=== PATIENT | male | born 1960 | race Caucasian/White ===

== ENCOUNTER 2016-05-18 14:30 | Outpatient (RCR) | payer BC | END 2016-07-26 | disposition home or self-care (01) | LOC: DT 14:30 | PROVIDERS: ATTEND Nurse Practitioner Family | DX: E11.9 Type 2 diabetes mellitus without complications (principal) | CPT/HCPCS: 97802; 97803 ==

== ENCOUNTER → 2016-08-25 | Outpatient (CLI) | payer BC ==
[~2016-08-25] MED LIST: AML2.5T PO; ASPI-860 PO; CHOL10002 PO; CLON0.5T3 PO; CLOP75TA3 PO; DILT180C PO; DILT240C87 PO; EZET10TA5 PO; FAMO20TA45 PO; FURO40TA4 PO; GLYB5TAB6 PO; LISI5TAB14 PO; NFMET1000 PO; NIAC10002 PO; NITR1PAT11 TD; NTR.4SL SL; NTR.6TD TD; OMG1KC PO; ONDA4TAB11 PO; OXYC1TAB87 PO; PANT20TA24 PO; PANT40TA3 PO; PITA2TAB PO; SCR1T1 PO; TAMS0.4C2 PO; TRM50T PO; UBID50CA21 PO
== END ==
LOC: LAB 08:31
PROVIDERS: ATTEND Nurse Practitioner Family
DX: E11.9 Type 2 diabetes mellitus without complications (principal)
CPT/HCPCS: 36415; 83036

== ENCOUNTER 2016-10-18 04:33 | Emergency (ER) | payer BC ==
[~2016-10-18] VITALS: Ht 172.7 cm; Wt 95.5 kg
--- OUTSIDE RECORDS SUMMARY | 2016-10-18 04:37 | XMS REPORT | Continuity of Care Document ---
Author Author [facility] Organization [facility] Address Unknown Phone Unavailable Support Name Relationship Address Phone CLAUS FONSECA APRN Caregiver [address] [place] [address] DELILAH YADAV Next Of Kin [address] [place] [address] Insurance Providers Payer Name Policy Number Subscriber Name Relationship [facility] [id number] Terence Guzman 19 Self / Same As Patient Advance Directives Directive Response Recorded Date/Time Advanced Directives Yes 04/21/15 6:35am Type Living Will 04/21/15 6:35am Type Durable Power of Fisher Clam 04/21/15 6:35am Problems Active Problems Medical Problem Onset Date Status Blood in stool Unknown Acute Chest pain ~06/30/2014 Acute Dyspnea ~06/30/2014 Acute Elevated d-dimer ~07/01/2014 Acute Esophagitis Unknown Acute Hematemesis Unknown Acute Repair of umbilical hernia Unknown Resolved Medications Current Home Medications Medication Dose Units Route Directions Days/Qty Instructions Start Date Nitroglycerin (Nitrostat) 0.4 Mg 0.4 Mg SUBLINGUAL As Needed Pitavastatin Calcium 2 Mg 2 Mg ORAL Daily 09/02/13 Ezetimibe 10 Mg 10 Mg ORAL Daily 09/02/13 Nitroglycerin 1 Each 1 Each TRANSDERMAL Daily 09/02/13 Lisinopril (Zestril) 5 Mg 5 Mg ORAL Daily 09/02/13 Clopidogrel Bisulfate 75 Mg 75 Mg ORAL Daily 09/02/13 Aspirin 81 Mg 81 Mg ORAL Daily 09/02/13 Glyburide 5 Mg 5 Mg ORAL Twice A Day 09/02/13 Metformin Hcl 1,000 Mg 1,000 Mg ORAL Twice A Day 09/02/13 Pantoprazole Sod 40 Mg 40 Mg ORAL Twice A Day 07/01/14 Clonazepam 0.5 Mg 0.5 Mg ORAL Bedtime 04/20/15 Ubidecarenone 50 Mg 50 Mg ORAL Daily 04/20/15 [place] 3 Polyunsat Fatty Acids 1,000 Mg 2,000 Mg ORAL Twice A Day Furosemide 40 Mg 40 Mg ORAL Daily 04/21/15 Famotidine 20 Mg 20 Mg ORAL Twice A Day 04/21/15 Past Home Medications Medication Directions Ordered Status Ondansetron 4 Mg Tab.rapdis, 4 Mg Oral As Needed 09/02/13 Discontinued Tramadol Hcl (Ultram) 50 Mg Tablet, 50 Mg Oral As Needed 09/02/13 Discontinued Oxycodone/Acetaminophen 1 Each Tablet, 1-2 Tab Oral As Needed 09/02/13 Discontinued Cholecalciferol 1,000 Unit Tab, 2000 Unit Oral Daily 09/02/13 Discontinued [place] 3 Polyunsat Fatty Acids 1,000 Mg Cap, 1000 Mg Oral Three Times A Day Discontinued Niacin 1,000 Mg Tablet.er, 1000 Mg Oral Twice A Day 09/02/13 Discontinued Diltiazem Hcl 240 Mg Capsule.er, 240 Mg Oral Daily 09/02/13 Discontinued Amlodipine Besylate (Norvasc) 2.5 Mg Tablet, 2.5 Mg Oral Daily 09/02/13 Discontinued Pantoprazole Sodium (Protonix) 20 Mg Tablet.dr, 20 Mg Oral Twice A Day Discontinued Diltiazem Hcl 180 Mg Cap.er.24h, 180 Mg Oral Bedtime 07/01/14 Discontinued Tamsulosin Hcl 0.4 Mg Cap.er.24h, 0.4 Mg Oral Bedtime 07/01/14 Discontinued Nitroglycerin 0.6 Mg/Patch Patch, 0.6 Mg Transdermal Daily 07/14/14 Discontinued Sucralfate (Carafate) 1 Gm Tablet, 1 Gm Oral 30 Min Qac & Qhs 08/20/14 Discontinued Social History No social history. Hospital Discharge Instructions No hospital discharge instructions. Plan of Care Prescriptions See Medication Section Functional Status No functional status results. Allergies, Adverse Reactions, Alerts Allergen Type Severity Reaction Status Last Updated Penicillin Allergy Unknown Active 09/02/13 Sulfa (Sulfonamide Antibiotics) Allergy Unknown Active 04/20/15 Pravastatin Allergy Unknown Active 04/20/15 Simvastatin Allergy Unknown Active 04/20/15 Meperidine Allergy Unknown Active 04/20/15 atorvastatin Allergy Unknown Active 04/20/15 rosuvastatin Allergy Unknown Active 04/20/15 Immunizations No immunization records. Vital Signs No known vital signs results. Results No known relevant diagnostic tests, laboratory data and/or discharge summary. Procedures No known history of procedures. Encounters Encounter Location Arrival/Admit Date Discharge/Depart Date Attending Provider Discharged [facility] 05/18/16 2:30pm 07/26/16 11:59pm CLAUS FONSECA APRN
[2016-10-18 04:40] VITALS: BP 155/80
--- NOTE | 2016-10-18 05:48 | NUR ---
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 Pt is nonsymptomatic with this
== END 2016-10-18 06:13 | disposition home or self-care (01) ==
LOC: ED 04:35
DX: M79.651 Pain in right thigh (principal)
CPT/HCPCS: 99282